=== PATIENT | female | born 1960 | race Caucasian/White ===

== ENCOUNTER 2016-11-10 08:50 | Day surgery (SDC) | payer OTHER ==
[~2016-11-10] VITALS: Ht 172.7 cm; Wt 64.9 kg
[~2016-11-10 08:50] MED LIST: CEFAZOLIN SOD 1 GM in D5W 50 ML IV ONE
[2016-11-10] MEDS ORDERED: SEVOFLURANE 15 MIN GAS INH ONE (13:22)
[2016-11-10] MEDS ORDERED: BUPIVACAINE /EPINEPHRINE/PF 0.25% 30 ML VIAL INJ ONE (13:22)
[2016-11-10] MEDS ORDERED: KETOROLAC TROMETHAMINE 30 MG VIAL IVP ONE (13:22)
[2016-11-10] MEDS ORDERED: MIDAZOLAM HCL 5 MG/5 ML VIAL IVP ONE (13:22)
[2016-11-10] MEDS ORDERED: DEXAMETHASONE SOD PHOSPHATE 4 MG/ML VIAL IVP ONE (13:22)
[2016-11-10] MEDS ORDERED: PROPOFOL 200MG/ 20ML VIAL (DIPRIVAN) IV ONE (13:22)
[2016-11-10] MEDS ORDERED: LR 1,000 ML IV.SOLN IV ONE (13:22)
[2016-11-10] MEDS ORDERED: METOCLOPRAMIDE HCL 10 MG/2 ML VIAL IVP ONE (13:22)
[2016-11-10] MEDS ORDERED: fentaNYL CITRATE/PF 100 MCG/2 ML AMP IVP ONE (13:22)
[2016-11-10] MEDS ORDERED: WATER FOR IRRIGATION,STERILE 1,000 ML IRRIG.SOLN IR ONE (13:22)
[2016-11-10] MEDS ORDERED: D5/0.45 NS 1,000 ML IV SCH (14:19)
[2016-11-10] MEDS ORDERED: LR 1,000 ML IV ONE (14:26)
[2016-11-10] MEDS ORDERED: HYDROmorphone 1 MG INJ. 1 MG/ML AMPUL IVP PRN (14:30)
[2016-11-10] MEDS ORDERED: ONDANSETRON HCL 4 MG/2 ML VIAL IVP PRN ×2 (14:30)
[2016-11-10] MEDS ORDERED: ePHEDrine sulfate 50 MG/ML VIAL IVP PRN (14:30)
[2016-11-10] MEDS ORDERED: NALBUPHINE HCL 10 MG/ML AMP IVP PRN (14:30)
[2016-11-10] MEDS ORDERED: NALOXONE HCL 0.4 MG/ML AMP (NARCAN) IVP PRN (14:30)
[2016-11-10] MEDS ORDERED: DIPHENHYDRAMINE INJ 50 MG/ML VIAL IVP PRN (14:30)
[2016-11-10] MEDS ORDERED: HYDROcodone/ACETAMIN 5-325 MG TAB (NORCO/ VICODIN) PO PRN ×2 (14:30)
[2016-11-10] MEDS ORDERED: fentaNYL CITRATE/PF 100 MCG/2 ML AMP IVP PRN (14:30)
[2016-11-10 15:16] VITALS: BP_SYST 100
== END 2016-11-10 16:15 | disposition home or self-care (01) ==
LOC: SDS 08:50 → SMU 08:50 → SDS 16:15
PROVIDERS: ATTEND Colon & Rectal Surgery
DX: K60.1 Chronic anal fissure (principal); F41.9 Anxiety disorder, unspecified; K64.8 Other hemorrhoids; G47.00 Insomnia, unspecified; K58.9 Irritable bowel syndrome, unspecified; M85.80 Other specified disorders of bone density and structure, unspecified site; Z90.710 Acquired absence of both cervix and uterus; Z80.8 Family history of malignant neoplasm of other organs or systems; Z82.3 Family history of stroke; Z83.79 Family history of other diseases of the digestive system; Z83.518 Family history of other specified eye disorder; Z82.49 Family history of ischemic heart disease and other diseases of the circulatory system; Z80.42 Family history of malignant neoplasm of prostate; Z80.41 Family history of malignant neoplasm of ovary; J45.909 Unspecified asthma, uncomplicated
CPT/HCPCS: J0690; J1100; J1885; J2250; J2704; J2765; J3010; J3490; J7060; J7120